=== PATIENT | male | born 1955 | race Caucasian/White ===

== ENCOUNTER 2017-03-06 21:28 | Inpatient (IN) | payer OTHER ==
[~2017-03-06] VITALS: Ht 182.9 cm; Wt 104.1 kg
--- NOTE | ~2017-03-06 | ER ---
PATIENT'S NAME: ADILIA LYONS [facility] AGE: 61 Y [address] ROOM: [place] [id number] LOCATION: [facility] ADMIT DATE: 03/06/2017 ER/Outpatient Report DISCHARGE DATE: FAMILY PHYSICIAN: PHYSICIAN, UNKNOWN ATTENDING PHYSICIAN: MARLENA WILLARD Time of Arrival: 2130 hours. Time of Evaluation: 2130 hours. CHIEF COMPLAINT: Chest pain. HISTORY OF PRESENT ILLNESS: The patient is a 61-year-old male, who presents to the emergency department today with a chief complaint of chest pain, who reports this started 1 hour prior to arrival. He denies any ripping or tearing sensation. Does have some nausea as well as some vomiting. He did have pain up into his jaw. He was diaphoretic. There is a pressure in the center of his chest. The patient does report pain that started prior to arrival. He has not had history of similar episodes in the past. Denies any radiation to the back. No ripping or tearing. No history of PE or DVT. PAST MEDICAL HISTORY: Hyperthyroid. PAST SURGICAL HISTORY: Tonsillectomy and TURP. SOCIAL HISTORY: The patient denies any tobacco, alcohol, or illicit drug use. ALLERGIES: NO KNOWN DRUG ALLERGIES. MEDICATIONS: Levothyroxine. PRIMARY CARE DOCTOR: Dr. Brannon. REVIEW OF SYSTEMS: All systems are reviewed by myself and are negative with the exception of those discussed in the HPI and past medical history. PHYSICAL EXAMINATION: PATIENT'S NAME: ADILIA LYONS [facility] AGE: 61 Y [address] ROOM: [address] [address] LOCATION: [facility] ADMIT DATE: 03/06/2017 ER/Outpatient Report DISCHARGE DATE: FAMILY PHYSICIAN: PHYSICIAN, UNKNOWN ATTENDING PHYSICIAN: MARLENA WILLARD VITAL SIGNS: Pulse 88, respiratory rate 18, temperature 97.9, oxygen saturation 96% on 2 L nasal cannula, and blood pressure 207/110. GENERAL: The patient is a 61-year-old male, appears as stated age, in moderate acute distress. HEENT: Normocephalic and atraumatic. Pupils are equal, round, and reactive to light. NECK: Supple. There is no nuchal rigidity. CARDIOVASCULAR: Regular rate and rhythm. No murmurs, rubs, or gallops. LUNGS: Clear to auscultation bilaterally. No wheezes, rales, or rhonchi. ABDOMEN: Soft, nontender, and nondistended. No rebound, rigidity, or guarding. MUSCULOSKELETAL: The patient moves all 4 extremities. SKIN: Warm and dry. LABORATORY DATA AND X-RAYS: A field EKG was obtained at 2116 hours and interpreted by myself. It does show ST elevation in III and aVF. There is ST depression noted in 1 and aVL. This does meet STEMI criteria. Repeat EKG upon arrival here to the emergency department does show ST elevation of 2 mm in III and AVF as well as ST depression in 1 and aVL. CBC is unremarkable except for hemoglobin of 18.4 and hematocrit of 53.7. Coags are normal. CMP unremarkable except for potassium of 3.6 and glucose of 186. LFTs are normal. Magnesium is normal. Troponin is elevated at 0.328. One view chest x-ray is obtained, shows no acute process. IMPRESSION: 1. ST segment elevation myocardial infarction. 2. Critical care time 30 minutes. 3. Initial visit. EMERGENCY DEPARTMENT COURSE: The patient's EKG from the field was sent at 2116 hours, this was interpreted by myself, does show STEMI with ST elevation of 3 mm in lead III and 2 mm in aVF. A code STEMI was initiated. Dr. Cochran, the energy risk management analyst on-call, was contacted at 2120 hours by myself. I have discussed that there is a STEMI en route for a 61-year-old male, who had nausea, vomiting, and chest pain. The patient does arrive here in the emergency department. He was immediately seen upon arrival by myself. The patient had been given aspirin and nitroglycerin prior to arrival. No more nitroglycerin was given. History and physical performed. Repeat EKG was obtained as described above. I have discussed the case with Dr. Cochran. She has seen and evaluated the patient down here in the emergency department. The patient was prepped for the heart catheterization lab. Heparin bolus was initiated. I have discussed the heart catheterization with the patient. His questions were answered, he is without questions, he does wish to proceed. The patient did require critical care time, this did include time spent, PATIENT'S NAME: ADILIA LYONS [facility] AGE: 61 Y [address] ROOM: [place] [address] LOCATION: [facility] ADMIT DATE: 03/06/2017 ER/Outpatient Report DISCHARGE DATE: FAMILY PHYSICIAN: PHYSICIAN, UNKNOWN ATTENDING PHYSICIAN: MARLENA WILLARD interpreting EKG including the field EKG, talking with family, talking with consultants, ordering tests, reviewing tests, as well as close monitoring in a patient with a STEMI. DISPOSITION: The patient is transferred to the heart catheterization lab in critical condition. DO HERBER MEDEIROS/jeimy /[id number] d: 03/07/17 0325 t: 03/10/17 1902, OUTPATIENT REPORT
--- NOTE | ~2017-03-06 | CATH ---
Cardiac Diagnostic Report Demographics Patient Name SERENA Henderson Gender Male Date of 1955 Age 61 year(s) Patient Number [id number] Date of Study 03/06/2017 Visit Number [id number] Room Number G6[address] [place] [id number] Ht 183 cm Wt 106.6 kg Referring Salud Lemons Primary Physician Physician Performing [place] Secondary Physician Physician Keke CHINO [facility] Ass[facility] Phys[facility] Physician Keke CHINO Interventional Physician Rear Admiral Physician Findings and Conclusions Diagnostic Findings and Conclusion Severe multi-vessel disease. Critical lesions in mid RCA, subtotalled with significant thrombus burden, Cx/OM is subtotalled as well, LAD/diag branches with 90% stenosis. Collaterals from left system fill distal RCA. LV gram reveals normal LV systolic function. No significant MR. No . LVEDP is \E\R\E\ 16 mmHg. Diagnostic Recommendations There is no indication for attempted PCI of RCA, which is the culprit lesion for inferior STEMI, as patient has collaterals from the left system and distal vessel fills antegrade flow as well. At this time patient will benefit from urgent CABG given he continues to have mild chest discomfort and ongoing evidence of ischemia on ECG. Discussed and reviewed angiograms with Dr. Palm. Appreciate his help. Patient is hemodynamically stable. Procedure Description The patient was brought to the diagnostic cardiac catheterization-EP laboratory by emergency personal. Physician deemed procedure as EMERGENT. The planned puncture-incision site(s) were shaved and prepped with ChloraPrep and draped in the usual sterile manner. Conscious sedation, supplemental oxygen, and pain control medications were delivered by a registered nurse under physician guidance. Surface ECG rhythm, blood pressure measurement, and pulse oximetry were monitored throughout the procedure. Arterial access. The access site was infiltrated with lidocaine. The vessel was entered with the Seldinger technique. A sheath was advanced into the vessel and used for catheter placement. Selective left coronary angiography. A catheter was advanced into the left coronary vessel ostium under Fluoroscopic guidance. Contrast was injected by hand. Images were obtained in multiple projections. Selective right coronary angiography. A catheter was advanced into the right coronary vessel ostium under fluoroscopic guidance. Contrast was injected by hand. Images were obtained in multiple projections. Left heart catheterization with ventriculography. A catheter was advanced across the aortic valve to the left ventricle under fluoroscopic guidance. Resting hemodynamics were obtained. With the catheter at the left ventricular apex, contrast was injected. Images were obtained in CARPIO projection. Post-ventriculography LV pressure was obtained. The catheter was gradually withdrawn into the aorta with continuous pressure recording. Arterial artery hemostasis was achieved. The patient was transferred to emergent CABG by OR staff. The patient left the laboratory in stable condition. Diagnostic Cath Status: Emergency Procedure Procedure Type Diagnostic procedure:Ventriculogram:, Left, Angiography:, Coronary Angios w/[facility] Indications: Acute TX and ST wave changes. Angiographic Findings Dominance: Right Cardiac Arteries and Lesion Findings LMCA: Normal (0% Stenosis). LAD: Aneurysmal and Multiple stenosis.Aneurysmal proximal. Mid LAD 90% stenosis. Diag 1 70% stenosis. Diag 2 90% stenosis. Lesion on Mid LAD: Mid subsection.90% stenosis . Lesion on 1st Diag: Mid subsection.70% stenosis . Lesion on 2nd Diag: Mid subsection.90% stenosis . LCx: Multiple stenosis. Lesion on Prox CX: Proximal subsection.95% stenosis . Lesion on Mid CX: Mid subsection.90% stenosis . Lesion on 3rd Ob Ines: Mid subsection.95% stenosis . RCA: Multiple stenosis. Lesion on Prox RCA: Proximal subsection.80% stenosis . Lesion on Mid RCA: Mid subsection.99% stenosis . Lesion on 1st RPL: Proximal subsection.30% stenosis . Lesion on R PDA: Mid subsection.50% stenosis . Coronary Tree Procedure Data Procedure Date Date: 03/06/2017Start: 09:59 PMEnd: 10:45 PM Entry Locations - Retrograde Percutaneous access was performed through the Right Radial artery (Primary location). A 6 Fr sheath was inserted. Hemostasis was successfully obtained using Mechanical Compression. Closure Comments: 13 ml in R. Band by Barber Fierro. Procedure Medications Order and Administration + + + + + !Time !Medication !Dosage !Route ! + + + + + !03/06/2017 09:59 PM!Versed !1 mg !I.V. ! + + + + + !03/06/2017 09:59 PM!Zofran !4 mg !I.V. ! + + + + + !03/06/2017 09:59 PM!Fentanyl !50 mcg ! ! + + + + + !03/06/2017 10:07 PM!Heparin Drip ( 2500u/250ml)!1000 units/hr!I.V. drip ! + + + + + Devices Used - A5 Fr. BS JL 3.5 Diag. Catheterwas used for:Left coronary angiography. - A5 Fr. BS JR 4 Diag. Catheterwas used for:Right coronary angiography. - A5 Fr. BS Angled Pigtail Diag. Catheterwas used for:Left ventriculography. Contrast Material - Isovue 28566 ml Fluoroscopy Time: Diagnostic: 3:03 minutes. Total: 3:03 minutes. Fluoroscopy Dose: Diagnostic: 942 mGy. Total: 942 mGy. Estimated Blood Loss: 10 ml. Medical History Allergies - No known allergies. Admission Data Admission Date: 03/06/2017 Admission Time: 09:59 PM Admit Source: Emergency department Insurance Payors: Private health insurance. Clinical Evaluation Leading to Procedure - The patient's CAD presentation was assessed as: STEMI.The symptom onset was first noted on 03/06/2017 08:00 PM(time was estimated). - The patient's anginal syndrome during the past two weeks was assessed as: Class IV according to the [place] Cardiovascular Society Classification System (CCS). - The patient has been in a state of heart failure within the past two weeks. - The patient's heart failure status was assessed as NYHA Class II, with CHF symptoms of ASHLEY. VA LV function assessed . Hemodynamics Condition: Rest O2 Consumption: Estimated: 276.40Heart Rate: 80 bpm Pressures (mmHg) +-----+ + !Site !Pressure ! +-----+ + !LV !150/13 ,20 ! +-----+ + !LV !150/13 ,18 ! +-----+ + !LV !150/7 ,20 ! +-----+ + !LV !149/6 ,19 ! +-----+ + !AO !157/90 (120) ! +-----+ + !LV !152/5 ,20 ! +-----+ + Valve Gradients and Areas + +---------+---------+---------+ +---------+ + !Valve !Peak !Mean !Area !Index !Flow !Source ! + +---------+---------+---------+ +---------+ + !Aortic !0 !0 ! ! ! ! ! + +---------+---------+---------+ +---------+ + !Aortic !0 !0 ! ! ! ! ! + +---------+---------+---------+ +---------+ + Shunts Oxygen Values O2 Consumption 276.4 Signatures dtt: KEKE WILLARD dtd: 03/06/17 2159 Physician Self Edit
--- NOTE | ~2017-03-06 | OR ---
PATIENT'S NAME: ADILIA LYONS [facility] AGE: 61 Y [address] ROOM: [address] [address] LOCATION: [facility]U ADMIT DATE: 03/06/2017 OR/Procedure Report DISCHARGE DATE: 03/12/2017 FAMILY PHYSICIAN: Galen Brannon MD ATTENDING PHYSICIAN: Keke Reyes SURGEON: Ryan Palm DO BOTTLE CASER: DATE OF PROCEDURE: 03/06/2017 PREOPERATIVE DIAGNOSIS: Code ST elevation myocardial infarction. POSTOPERATIVE DIAGNOSIS: Code ST elevation myocardial infarction. PROCEDURE PERFORMED: Emergent coronary artery bypass grafting x6 with left internal mammary artery to the left anterior descending, reverse saphenous vein graft to the diagonal, reverse saphenous vein graft to obtuse marginal #2 that was sequenced to the obtuse marginal #1, reverse saphenous vein graft to posterolateral septal branch sequenced to the posterior descending artery. REFERRING PHYSICIAN: Keke Reyes MD. BRIEF HISTORY: Mr. Lyons is a 61-year-old white male who presented to the ER with chest pain. He was ruled in as a code STEMI and taken emergently to the Coronary Employee Benefits Manager where he was found to have severe multivessel disease and continued to have ongoing chest pain with marked hypertension. We were called to the Employee Benefits Manager and elected to bring him to the operative suite in an emergent fashion to control his chest pain. He is sterilely prepped and draped in the usual fashion for sternotomy with lower extremity vein harvest. A sternal incision was made and concurrently to this, saphenous vein was being harvested endoscopically from the lower extremity. The sternum was divided in the midline. Electrocautery was used for hemostasis along with [place] for marrow hemostasis and a mammary retractor was placed. The left internal mammary was identified and harvested in a standard fashion. Prior to its division, the patient was fully heparinized. The mammary was then divided and prepared for bypass. The mammary retractor was removed and a sternal retractor was placed. Pericardium was opened. Pericardial wall was created. Cannulation sutures were placed in the ascending aorta and right atrium for bypass and cardioplegia cannulas, and the patient was connected to bypass pump without difficulty. The vein was then prepared for bypass. An adequate ACT was achieved, and cardiopulmonary bypass was initiated. A cross-clamp was applied. Antegrade and retrograde cardioplegia was given along with topical cold saline and the heart arrested without difficulty. The posterolateral septal branch was identified and opened, end-to-side vein graft anastomosed to this, and then a 500 mL of retrograde vein graft cardioplegia was given. This was done after each venous distal anastomosis. The graft was then sized PATIENT'S NAME: ADILIA LYONS [facility] AGE: 61 Y [address] ROOM: [place] [address] LOCATION: [facility]U ADMIT DATE: 03/06/2017 OR/Procedure Report DISCHARGE DATE: 03/12/2017 FAMILY PHYSICIAN: Galen Brannon MD ATTENDING PHYSICIAN: Keke Reyes appropriately, and then a qprr-gc-cfau bypass was created with the same graft to the posterior descending artery. Another 500 mL of vein graft was given and we proceeded to the obtuse marginal #1. This was identified and opened, end-to-side vein graft anastomosed to it, and then after plegia was given, a jjir-nn-agui anastomosis was created with the vein graft to the obtuse marginal #2, we then performed vein graft anastomosis to the diagonal in an end-to-side fashion, and then lastly we performed our COBB to LAD bypass again in an end-to-side fashion with 7-0 Prolene. Once this was completed, the crossclamp was removed, a partial occlusion clamp was applied. Warm blood was now initiated via the vein grafts and the retrograde cannula, and we began to perform our proximal anastomosis. We did 2 proximal anastomoses under partial occlusion clamping with a 4-0 punch and 6-0 Prolene and then anastomosed our last vein graft to the ascending aorta with a 4.3 heartstring to the ascending aorta and 6-0 Prolene. Once this was completed, all vein grafts de-aired, bulldog was removed, and distal flow was given. Distal sites were hemostatic. Proximal sites were hemostatic. Two atrial and 1 ventricular temporary pacemaking wires were placed. Warm blood was discontinued, retrograde cannula was removed, ventilations were initiated, and we weaned from cardiopulmonary bypass. We weaned from bypass without difficulty, requiring only 0.5 mcg/kilo of Eris-Synephrine. Venous cannula was removed. Appropriate volume returned from the pump to the patient. The ascending aortic cannula was removed, and protamine was given. Copious amounts of antibiotic-infused saline was used to irrigate the sternum and mediastinum. Three chest tubes were placed, 1 left pleural, 1 posterior pericardial, 1 anterior mediastinal. Five ZipFix cables were used to approximate the sternum and soft tissues were closed in a layered fashion. All sponge, instrument, and needle counts were correct. The patient was transferred to the Intensive Care Unit in stable condition. DO MAO CASTILLO/modl /[id number] d: 03/14/172024 t: 03/15/17 0841, OPERATIVE SUMMARY
--- NOTE | ~2017-03-06 | CON ---
PATIENT'S NAME: ADILIA LYONS [facility] AGE: 61 Y [address] ROOM: [address] [address] LOCATION: GICU ADMIT DATE: 03/06/2017 Consultation DISCHARGE DATE: FAMILY PHYSICIAN: PHYSICIAN, UNKNOWN ATTENDING PHYSICIAN: MARLENA WILLARD DATE OF CONSULTATION: 03/06/2017 REFERRING PHYSICIAN: Holland Guadalupe DO REASON FOR CONSULTATION: STEMI. HISTORY OF PRESENTING ILLNESS: The patient is a very pleasant 61-year-old male, who really does not have any significant past medical history except for hypothyroidism. His primary care physician is Dr. Bueno. The patient reports that he takes Synthroid and no other medications at home. The patient has been in his usual state of health up until recently on Saturday, that is about 5 days ago, he really was not feeling normal, he was feeling sick to his stomach and started having some chest pain. He reports this was coming off and on for the past few days. However, today, he reports he was feeling very sick, he vomited, he was nauseous. He also had some chest tightness, radiating to the jaw. He had it off and on today, this morning; however, at around 8 o'clock in the evening, an hour and a half before he came into the emergency room, he reported that the nausea and vomiting was getting worse along with the chest tightness and he rated it at 5 and that was radiating to his jaw. He finally called 911 and came to the emergency room. EMS did the EKG where they noted ST elevation and the STEMI code was activated, and I was called. The patient was about 5 minutes away. He did receive aspirin in the ambulance. Upon arrival, I asked the ER physician to give 4000 units of IV heparin, and the patient was then taken emergently to the cardiac microbiology lab technician. Risks and benefits were discussed with the patient, and he was agreeable to proceed with catheterization. He did not have any fever; chills; stroke-like symptoms; changes in his speech, swallowing sensation, or strength. He also did not have any diarrhea or blood in his stools. No history of stroke in the past. No changes in his gait. No cough or sputum production. No palpitations or dizziness. REVIEW OF SYSTEMS: Discussed with the patient. Pertinent positives and negatives as mentioned in the history of presenting illness. PAST MEDICAL HISTORY: PATIENT'S NAME: ADILIA LYONS [facility] AGE: 61 Y [address] ROOM: [place] [address] LOCATION: [facility] ADMIT DATE: 03/06/2017 Consultation DISCHARGE DATE: FAMILY PHYSICIAN: PHYSICIAN, UNKNOWN ATTENDING PHYSICIAN: MARLENA WILLARD Hypothyroidism. PAST SURGICAL HISTORY: TURP, appendectomy, and tonsillectomy. ALLERGIES: NO KNOWN DRUG ALLERGIES. MEDICATIONS: Synthroid, will reconcile meds and get dose. FAMILY HISTORY: The patient was adopted, so family history is unknown. SOCIAL HISTORY: The patient does not smoke. No alcohol or illicit drug abuse. He is and has 4 children. PHYSICAL EXAMINATION: VITAL SIGNS: Blood pressure 200/110, heart rate 80s, respirations 14, afebrile. GENERAL: The patient is not in any apparent distress. He reports 3/10 chest tightness. HEENT: Head: Atraumatic and normocephalic. Mucous membranes are moist. HEART: S1 and S2. Regular rate and rhythm. No murmurs, gallops, or rubs. LUNGS: Clear to auscultation bilaterally. MUSCULOSKELETAL: Able to move all extremities. Good range of motion. NEUROLOGIC: Extraocular movements are intact. He is able to move all extremities against gravity. Sensation is normal. No significant lower extremity edema. Radial 2+ artery. SKIN: Warm and dry. ABDOMEN: Soft bowel sounds positive. LABORATORY DATA: Labs are pending. EKG, ST elevation in the inferior leads with ST depressions in leads I and aVL. IMPRESSION AND PLAN: 1. Inferior ST elevation myocardial infarction with ST depressions in I and aVL. I suspect an occlusion of the right coronary artery. Risks and benefits discussed with the patient. I told him that the benefits of catheterization outweigh the risks. He is agreeable to proceed with plan. Aspirin and heparin given, and the patient was taken emergently to the cardiac microbiology lab technician. 2. Hypothyroidism. We will get the dosage of his Synthroid and resume that. PATIENT'S NAME: ADILIA LYONS [facility] AGE: 61 Y [address] ROOM: [place] [address] LOCATION: [facility] ADMIT DATE: 03/06/2017 Consultation DISCHARGE DATE: FAMILY PHYSICIAN: PHYSICIAN, UNKNOWN ATTENDING PHYSICIAN: MARLENA WILLARD Further plan after the cardiac cath is performed. Thank you very much for allowing us to participate in the care of Mr. Lyons. MARLENA WILLARD MD AT/modl /[id number] CC: Galen Brannon MD d: 03/07/17 0327 t: 03/08/17 0942, CONSULTATION REPORT
[2017-03-06 21:45] LABS: BASOPHIL # 0.1 K/uL (0.0-0.2); BASOPHIL % 0.8 %; EOSINOPHIL # 0.1 K/uL (0.0-0.5); EOSINOPHIL % 0.8 %; HEMATOCRIT 53.7 % (37.0-53.0); HEMOGLOBIN 18.4 g/dL (11.0-16.0); IMMATURE GRANULOCYTE % 0.7 %; LYMPHOCYTE # 1.5 K/uL (0.8-4.0); LYMPHOCYTE % 24.1 %; MCH 30.8 pg (27.0-34.0); MCHC 34.3 gm/dL (32.0-36.5); MCV 89.8 fl (83.0-98.0); MONOCYTE # 0.7 K/uL (0.0-1.0); MONOCYTE % 10.8 %; MPV 9.4 fl (9.4-12.4); NEUTROPHIL # (ANC) 3.8 K/uL (1.4-9.0); NEUTROPHIL % 62.8 %; NRBC % 0 /100WBC (0-0.00); PLATELET COUNT 199 K/uL (150-450); RDW-CV 12.9 % (11.9-14.6)
[2017-03-06 21:48] LABS: RBC 5.98 M/uL (3.50-5.50)
[2017-03-06 21:54] LABS: INR - (THERAPEUTIC) 1.03 (0.92-1.07); PROTIME 10.8 SECONDS (9.8-11.4); PTT 30 SECONDS (25-32)
[2017-03-06 22:03] LABS: ALBUMIN 3.6 gm/dL (3.5-5.0); ANION GAP 13.6 (10.0-19.0); CALCIUM 8.6 mg/dL (8.5-10.5); CREATININE 1.3 mg/dL (0.6-1.3); MAGNESIUM 2.3 mg/dL (1.8-2.6); POTASSIUM 3.6 mMol/L (3.7-5.1); TOTAL BILIRUBIN 0.7 mg/dL (0.0-1.5); TOTAL PROTEIN 7.6 g/dL (6.0-8.4)
[2017-03-07 05:01] LABS: HEMOGLOBIN 13.1 g/dL (11.0-16.0); MCHC 33.8 gm/dL (32.0-36.5); MCV 91.3 fl (83.0-98.0); MPV 9.6 fl (9.4-12.4); RDW-CV 13.1 % (11.9-14.6); WBC 15.8 K/uL (4.0-11.0)
[2017-03-07 05:05] LABS: MCH 30.8 pg (27.0-34.0); RBC 4.25 M/uL (3.50-5.50)
[2017-03-07 05:06] LABS: HEMATOCRIT 38.8 % (37.0-53.0)
[2017-03-07 05:09] LABS: INR - (THERAPEUTIC) 1.13 (0.92-1.07); PROTIME 11.9 SECONDS (9.8-11.4)
[2017-03-07 05:40] LABS: BICARBONATE 29.6 mmol/L (18.0-23.0); PCO2 56 mmHg (35-45); PO2 484 mmHg (80-90)
[2017-03-07 05:41] LABS: POTASSIUM 4.4 mEq/L (3.7-5.1); SODIUM 136 mEq/L (135-145)
[2017-03-07 05:42] LABS: BICARBONATE 24.4 mmol/L (18.0-23.0); PCO2 50 mmHg (35-45); PO2 131 mmHg (80-90)
[2017-03-07 05:43] LABS: POTASSIUM 4.2 mEq/L (3.7-5.1); SODIUM 137 mEq/L (135-145)
[2017-03-07 05:44] LABS: BICARBONATE 24.6 mmol/L (18.0-23.0); PCO2 44 mmHg (35-45); PO2 176 mmHg (80-90)
[2017-03-07 05:45] LABS: POTASSIUM 5.9 mEq/L (3.7-5.1); SODIUM 136 mEq/L (135-145)
[2017-03-07 05:47] LABS: BICARBONATE 23.1 mmol/L (18.0-23.0); PCO2 42 mmHg (35-45); PO2 184 mmHg (80-90)
[2017-03-07 05:48] LABS: POTASSIUM 4.3 mEq/L (3.7-5.1); SODIUM 137 mEq/L (135-145)
[2017-03-07 05:55] LABS: ALPHA ANGLE 72 degrees; ALPHA ANGLE 75 degrees (70-81); CLOT FORMATION TIME 90 seconds; MAXIMUM CLOT FIRMNESS 61 mm; MAXIMUM CLOT FIRMNESS 63 mm (51-72); MAXIMUM LYSIS 0 %
[2017-03-07 05:56] LABS: CLOTTING TIME 78 seconds (43-82)
[2017-03-07 05:58] LABS: CLOTTING TIME 312 seconds
[2017-03-07 05:59] LABS: PCO2 45 mmHg (35-45); PO2 173 mmHg (80-90)
[2017-03-07 06:20] LABS: ANION GAP 12.3 (10.0-19.0); CALCIUM 8.5 mg/dL (8.5-10.5); CREATININE 1.3 mg/dL (0.6-1.3)
[2017-03-07 06:21] LABS: POTASSIUM 4.3 mMol/L (3.7-5.1)
--- NOTE | 2017-03-07 07:15 | NUR ---
Significant Event: PT WITH NAUSEA/CP WHILE AT WORK. PRESENTED TO ER CODESTEMI. TAKEN TO CATHLAB. DR WEST CONSULTED FOR EMERGENT CABG. CABG X6 VESSEL. COBB AND LEFT SAPH HARVEST SITES. PIV X2. RIGHT IJ, INTRODUCER. LEFT RADIAL ARTLINE. TR BAND TO RIGHT RADIAL CATH SITE REMOVED BY DR WEST AT BEDSIDE. INTUBATED ON SIMV 16/650/5/10/50%. A PACED. CT X4. AMIO PER PROTOCOL. BICARB AT 50ML/HR. INUSLIN GTT RESTARTED TITRATED TO 5 UNITS/HR. [address] K[address]WANDA COUDE CARSON PLACED BY DR WEST. Follow up:
[2017-03-07 07:40] LABS: ANION GAP 13.2 (10.0-19.0); BLOOD UREA NITROGEN 17 mg/dL (6-24); CALCIUM 8.1 mg/dL (8.5-10.5); CHLORIDE 112 mMol/L (96-110); CO2 22 mMol/L (22-32); CREATININE 1.2 mg/dL (0.6-1.3); ESTIMATED GFR (MDRD EQUATION) > 60; POTASSIUM 4.2 mMol/L (3.7-5.1); SODIUM 143 mMol/L (135-145)
[2017-03-07 07:45] LABS: MAGNESIUM 3.2 mg/dL (1.8-2.6)
[2017-03-07] MEDS ORDERED: ASPIRIN LO-DOSE81 MG PO (07:47)
[2017-03-07] MEDS ORDERED: EXCEDRIN EXTRA1 TAB PO (07:47)
[2017-03-07] MEDS ORDERED: LEVOTHROID (S150 MCG PO (07:47)
--- NOTE | 2017-03-07 12:06 | NUR ---
Introduced self and role of care management to patients Rosey as patient is sleeping. They live in [place]. She states that patient is normally independent with all his own ADL's. He currently works at [employer]. She states that she will be available to assist as needed on discharge. It is too soon to know discharge needs at this time. Rosey denies needs at this time. Will continue to follow.
[2017-03-07 15:16] LABS: POTASSIUM 4.6 mMol/L (3.7-5.1)
[2017-03-07 15:23] LABS: MAGNESIUM 2.7 mg/dL (1.8-2.6)
--- NOTE | 2017-03-07 16:30 | NUR ---
Significant Event: Patient is alert/oriented x3. Confused on time at times. Patient up in chair most of the day. Stood every 2 hours, and at [address] hallway with 2 assist. [place] given x2 this shift. Afebrile. Did have a lot of ectopy this afternoon. aware and did give extra amiodarone as electrolytes were normal. Pacemaker shut off at 1545. Chest tubes x4. Not much draining from them this shift. Nieves draining adrien urine with brown sediment. L) leg harvest sites wrapped in DAXA wrap. Follow up:
[2017-03-08 04:35] LABS: BICARBONATE 29.2 mmol/L (18.0-23.0); PCO2 46 mmHg (35-45)
[2017-03-08 04:38] LABS: PO2 68 mmHg (80-90)
[2017-03-08 04:40] LABS: HEMATOCRIT 42.4 % (37.0-53.0); HEMOGLOBIN 14.4 g/dL (11.0-16.0); MCH 31.2 pg (27.0-34.0); MCV 91.8 fl (83.0-98.0); MPV 10.1 fl (9.4-12.4); RBC 4.62 M/uL (3.50-5.50); RDW-CV 13.4 % (11.9-14.6); WBC 9.5 K/uL (4.0-11.0)
[2017-03-08 04:51] LABS: ANION GAP 10.8 (10.0-19.0); CALCIUM 8.2 mg/dL (8.5-10.5); CREATININE 1.3 mg/dL (0.6-1.3); POTASSIUM 3.8 mMol/L (3.7-5.1)
--- NOTE | 2017-03-08 05:52 | NUR ---
Significant Event: PATIENT ALERT AND ORIENTED. AFEBRILE THROUGHOUT SHIFT. PATEL GTT TITRATED OFF AT 2205. HR 70-80'S, OCCASSIONAL PVC NOTED. CVP 4-10. CT X4 WITH SEROSANG OUTPUT. 230 OUT PLEURAL, 140 OUT MEDIASTINAL. CONTINUES ON 2L PER NASAL CANNULA. WEAK COUGH. CARSON WITH GOOD UOP FOLLOWING BUMEX. NO BM, DENIES FLATUS. RIGHT IJ MAC. PIV X2. AMIO GTT OFF THIS MORNING, STARTED ON PO DOSE. CONTINUES ON INSULIN GTT, CURRENTLY AT 7 UNITS/HR. LEFT RADIAL ART LINE. PRN NORCO GIVEN Q4 HR. Follow up: TRANSFER PCU?
--- NOTE | 2017-03-08 10:02 | NUR ---
Significant Event: Patient is alert/oriented x3. Patient is receiving Seymour's every 4 hours for pain. Up ambulating with 1 assist. ART line, central line and 2 medial stinal chest tubes discontinued. AV wires also discontinued. Pleural chest tubes changed to kitty drains. NSR with some PVCs observed. VSS. Afebrile. Patient continues to have anguiano catheter. Follow up:
--- NOTE | 2017-03-08 18:37 | NUR ---
Significant Event:VSS AFEBRILE. HR'S 80'S TO 90'S. BP'S 110'S. ON 2L PER NC IN THE 90'S. DID HAVE STERNAL PAIN GAVE 2 NORCO LAST AT 1750. LFT LEG HARVEST SITES GOOD. STERNAL INCISION COVERED BY MEPILEX. ALLI PRESENT 550ML UOP. Follow up:
--- NOTE | 2017-03-09 04:08 | NUR ---
Significant Event: Pt A&Ox3. VS stable, remains on 2L. Pt has had a weak cough, LS clear/dim. HR NS, has been running in 90's-low 100's. BP's have been stable. Nieves patent with 390ml out, still remains adrien in color. +flatus, still BS hypoactive. Did c/o nausea this AM, gave 1 dose zofran. JYOTSNA drain on Lt side had 120ml out, Rt side 20ml. Gave 2 Reading around 0400 for pain. PIV RAC and LFA, SL. Remains up in chair. Have not gotten up. Pt remained drowsy/sleepy all throughout shift. Follow up: Continue plan of care. Treat for pain. Increase activity
[2017-03-09 04:28] LABS: HEMOGLOBIN 14.5 g/dL (11.0-16.0); MCH 30.7 pg (27.0-34.0); MCV 93.2 fl (83.0-98.0); MPV 10.2 fl (9.4-12.4); RBC 4.72 M/uL (3.50-5.50); RDW-CV 13.5 % (11.9-14.6); WBC 10.6 K/uL (4.0-11.0)
[2017-03-09 04:39] LABS: ANION GAP 12.6 (10.0-19.0); CALCIUM 8.3 mg/dL (8.5-10.5); CREATININE 1.3 mg/dL (0.6-1.3); POTASSIUM 4.6 mMol/L (3.7-5.1)
--- NOTE | 2017-03-09 15:53 | NUR ---
Significant Event: Patient A/O x 3. Up with 1A. VSS on 1L throughout the day. Attempted to wean to RA this shift. R)chest tube drain with 70 ml out and L)chest tube drain with 110 ml out. Nieves pulled out at 1535 and has voided since. Nauseated this afternoon so gave Zofran about 1330. Poor appetite and has only ate bites of pudding and jello today. RAC PIV SL. LFA PIV with 500 ml of albumin infusing and then SL. Continues ACHS accu checks. Pain controlled with [place]. Follow up: Continue as per plan of care. Control pain. Monitor nausea.
--- NOTE | 2017-03-10 04:53 | NUR ---
Significant Event: Pt A&Ox3. VS stable; have been able to wean pt off O2 while awake; however, 0.5L while sleeping. Has continued to have diarrhea. Has voided since anguiano removal yesterday. Did c/o nausea last night, zofran given with relief. Ambulates x1 assist to bathroom. [place] 2 tabs, last given around 0330. Dressing remains C/D/I. Accuchecks ACHS, moderate scale. JYOTSNA #1 90, JYOTSNA #2 60 output. PIV RAC, SL; Lt wrist, SL. Follow up: Ambulate TID. Up to chair TID. Continue plan of care.
--- NOTE | 2017-03-10 15:54 | NUR ---
Significant Event: Patient A/O x 3. Up with 1A. Sternal precautions. VSS on 0.5L. Have attempted to wean to RA multiple times throughout the day without success. Dressing to chest and chest tube sites intact with no new drainage. R)bulb drain with 70 ml out and L)drain with 60 out. No crepitus noted. Patient continues to have diarrhea-like stools today, but has not had any nausea. Tolerated more food intake today than previous days. Last pain medication given at 1230. Plan to give [place] prior to shift ending. [id number] pain control, and patient reports pain is tolerable. Ambulated [address] [facility] accu checks. Has not required coverage for the last 2 days. Follow up: Continue as per plan of care. Continue increasing activity level.
--- NOTE | 2017-03-11 04:37 | NUR ---
Significant Event: Pt A&Ox3. VS stable, remains on 0.5L. Continued to have diarrhea overnight, held colace again. Rt JYOTSNA had 20ml out and Lt JYOTSNA had 20ml out. Gave [place] 2 tabs last @ 0326. Accuchecks ACHS, last night was 101. No c/o nausea overnight. Follow up: Encourage food intake. Increase activity. Continue plan of care.
[2017-03-11 04:40] LABS: BASOPHIL % 0.5 %; EOSINOPHIL # 0.1 K/uL (0.0-0.5); EOSINOPHIL % 0.8 %; HEMATOCRIT 43.1 % (37.0-53.0); HEMOGLOBIN 14.1 g/dL (11.0-16.0); IMMATURE GRANULOCYTE # 0.1 K/uL (0.0-0.3); IMMATURE GRANULOCYTE % 0.7 %; LYMPHOCYTE # 1.1 K/uL (0.8-4.0); LYMPHOCYTE % 14.5 %; MCH 30.9 pg (27.0-34.0); MCHC 32.7 gm/dL (32.0-36.5); MCV 94.5 fl (83.0-98.0); MONOCYTE # 0.8 K/uL (0.0-1.0); MONOCYTE % 11.5 %; MPV 9.9 fl (9.4-12.4); NEUTROPHIL # (ANC) 5.3 K/uL (1.4-9.0); NRBC % 0 /100WBC (0-0.00); RBC 4.56 M/uL (3.50-5.50); RDW-CV 13.7 % (11.9-14.6); WBC 7.3 K/uL (4.0-11.0)
[2017-03-11 04:47] LABS: PLATELET COUNT 181 K/uL (150-450)
[2017-03-11 04:57] LABS: ALBUMIN 2.7 gm/dL (3.5-5.0); ALK PHOS 76 IU/L (33-138); ALT 25 IU/L (12-78); ANION GAP 13.3 (10.0-19.0); AST 46 IU/L (10-40); BLOOD UREA NITROGEN 35 mg/dL (6-24); CALCIUM 8.2 mg/dL (8.5-10.5); CHLORIDE 104 mMol/L (96-110); CO2 26 mMol/L (22-32); CREATININE 1.2 mg/dL (0.6-1.3); ESTIMATED GFR (MDRD EQUATION) > 60; POTASSIUM 4.3 mMol/L (3.7-5.1); SODIUM 139 mMol/L (135-145); TOTAL BILIRUBIN 0.7 mg/dL (0.0-1.5); TOTAL PROTEIN 6.2 g/dL (6.0-8.4)
--- NOTE | 2017-03-11 11:15 | NUR ---
A - PT SCREENED D/T LOS. S/P CABG X 6. GLU 94, BUN/CROSSBAR FRAME WIRER 35/1.2, ALB 2.7. DIET: DIABETIC, 2-3 GM NA+, 2000 ML FR. INTAKE REFUSED TO BITES. EST NEEDS: 3640-9930 KCALS, 97-120 KCALS. PT STATES APPETITE SLOWLY RETURNING. LIKES ENSURE. CABG DIET ED COMPLETED; HOWEVER, STRESSED THE IMPORTANCE OF GOOD INTAKE TO PROMOTED HEALING. D - AT RISK W/ INADEQUATE ORAL INTAKE R/T DECREASED APPETITE S/P CABG AEB INTAKE RECORD. I - GOAL: 50% INTAKE PRIOR TO DIMISSAL. M/E - WILL OFFER ENSURE BID AND F/U IN 2-4 DAYS.
--- NOTE | 2017-03-11 15:34 | NUR ---
Significant Event: Patient A/O X 3. Patient up with 1A. Sternal precautions. Weaned to RA. Vital signs stable. Chest tubes removed today. Dressings all intact with no drainage. Patient has not had a BM today and no complaints of nausea. Food intake was minimal with little appetite. Lower Left lung sound has crackles. (improving). PIV bilateral saline locked. [place] last given at given at 1240. Ambulated 3 laps [address] hallway. Chest X-ray done today. [facility] accu checks. Follow up: Continue as per plan of care. Continue increasing activity level and PO intake. Possible dismissal tomorrow.
--- NOTE | 2017-03-12 04:35 | NUR ---
Significant Event: Pt A&Ox3. VS stable, remains on RA. Did have 2 small diarrhea bowel movements overnight. Did hold the colace. Accuchecks ACHS, BS last night was 101. No real c/o pain. Still slight crackles in Lt base. Dressings remain C/D/I. UO is good. Still needs encouragement to cough stronger. Also needs more encouragement to do flutter valve and IS. Remains in SR. No c/o nausea. SBA to bathroom. Follow up: Continue plan of care. Possible d/c home today.
[2017-03-12] MEDS ORDERED: CORDARONE,PACE200 MG PO (10:48)
[2017-03-12] MEDS ORDERED: LIPITOR40 MG PO (10:49)
[2017-03-12] MEDS ORDERED: BUMEX1 MG PO (10:49)
[2017-03-12] MEDS ORDERED: COLACE100 MG PO (10:50)
[2017-03-12] MEDS ORDERED: ASPIRIN EC81 MG (10:50)
[2017-03-12] MEDS ORDERED: LOPRESSOR25 MG PO (10:53)
[2017-03-12] MEDS ORDERED: POTASSIUM CHLO20 ME1 PO (10:54)
[2017-03-12] MEDS ORDERED: NORCO 5-325 TA1 EACH PO (10:56)
[2017-03-12] MEDS ORDERED: ZESTRIL2.5 MG PO (10:58)
--- NOTE | 2017-03-12 12:51 | NUR ---
Discharge Summary: Patient A/O x 3 and vital signs stable: HR 94, RR 14, BP 122/72, O2 saturation 94% on room air, RR 14, and rates pain at a 2/10, which is tolerable for the patient. Incisions clean/dry/intact with edges approximated and no signs of infection. Discharge instructions included: new medications/medication changes, post-heart surgery cares/instructions, signs/symptoms to be alert for, cardiac rehab info, and follow-up appointments with Dr. Cochran and Dr. Palm on 03/[address] Brannon on 03/19. Patient and verbalize understanding of all teaching and deny any further questions at this time. Patient left PCU at 1350 per wheelchair to [facility] entrance and then home to self care with . Heart hugger in place. No other needs at time of discharge. Marysol ROTH 03/12/17
== END 2017-03-12 12:50 | disposition disaster alternative care site (69) | DRG 234 ==
LOC: GMED 21:28 → GPCU 21:59 → GICU 21:59 → GPCU 03-08 10:29
PROVIDERS: Emergency Medicine; Thoracic Surgery (Cardiothoracic Vascular Surgery); ADMIT Internal Medicine Interventional Cardiology
PROC: 06BQ4ZZ Excision of Left Saphenous Vein, Percutaneous Endoscopic Approach (ICD-10-PCS; principal; 2017-03-06)
PROC: B2151ZZ Fluoroscopy of Left Heart using Low Osmolar Contrast (ICD-10-PCS; principal; 2017-03-06)
PROC: 021309W Bypass Coronary Artery, Four or More Arteries from Aorta with Autologous Venous Tissue, Open Approach (ICD-10-PCS; principal; 2017-03-06)
PROC: 5A1221Z Performance of Cardiac Output, Continuous (ICD-10-PCS; principal; 2017-03-06)
PROC: 4A023N7 Measurement of Cardiac Sampling and Pressure, Left Heart, Percutaneous Approach (ICD-10-PCS; principal; 2017-03-06)
PROC: 02100A9 Bypass Coronary Artery, One Artery from Left Internal Mammary with Autologous Arterial Tissue, Open Approach (ICD-10-PCS; principal; 2017-03-06)
PROC: B2111ZZ Fluoroscopy of Multiple Coronary Arteries using Low Osmolar Contrast (ICD-10-PCS; principal; 2017-03-06)
DX: I21.19 ST elevation (STEMI) myocardial infarction involving other coronary artery of inferior wall (principal); I10 Essential (primary) hypertension; E03.9 Hypothyroidism, unspecified; I25.10 Atherosclerotic heart disease of native coronary artery without angina pectoris
CPT/HCPCS: C1769; C1887; J0282; J0583; J0690; J1644; J1650; J2150; J2250; J2370; J2405; J2440; J2720; J3010; J3475; J3480; J3490; J7040; J7050; J7060; J7121; P9045; P9047

== ENCOUNTER → 2017-03-06 | Outpatient (CLI) | payer OTHER ==
[~2017-03-06] MED LIST: ASPIRIN EC81 MG; ASPIRIN LO-DOSE81 MG PO; BUMEX1 MG PO; COLACE100 MG PO; CORDARONE,PACE200 MG PO; EXCEDRIN EXTRA1 TAB PO; LEVOTHROID (S150 MCG PO; LIPITOR40 MG PO; LOPRESSOR25 MG PO; NORCO 5-325 TA1 EACH PO; POTASSIUM CHLO20 ME1 PO; ZESTRIL2.5 MG PO
== END | disposition disaster alternative care site (69) ==
LOC: GAMB 21:09
DX: I21.19 ST elevation (STEMI) myocardial infarction involving other coronary artery of inferior wall (principal); E03.9 Hypothyroidism, unspecified; I10 Essential (primary) hypertension; R07.89 Other chest pain; R11.2 Nausea with vomiting, unspecified; Z79.899 Other long term (current) drug therapy
CPT/HCPCS: A0422; A0425; A0427; J2405; J7030

== ENCOUNTER → 2017-03-26 | Outpatient (CLI) | payer OTHER ==
[2017-03-26 15:39] LABS: BASOPHIL # 0.1 K/uL (0.0-0.2); BASOPHIL % 1.2 %; EOSINOPHIL # 0.4 K/uL (0.0-0.5); EOSINOPHIL % 5.2 %; HEMATOCRIT 50.2 % (37.0-53.0); HEMOGLOBIN 16.7 g/dL (11.0-16.0); IMMATURE GRANULOCYTE % 0.5 %; LYMPHOCYTE # 1.7 K/uL (0.8-4.0); LYMPHOCYTE % 20.9 %; MCH 30.9 pg (27.0-34.0); MCHC 33.3 gm/dL (32.0-36.5); MCV 92.8 fl (83.0-98.0); MONOCYTE # 0.6 K/uL (0.0-1.0); MONOCYTE % 7.8 %; MPV 9.6 fl (9.4-12.4); NEUTROPHIL # (ANC) 5.2 K/uL (1.4-9.0); NEUTROPHIL % 64.4 %; NRBC % 0 /100WBC (0-0.00); RBC 5.41 M/uL (3.50-5.50); RDW-CV 13.2 % (11.9-14.6); WBC 8.1 K/uL (4.0-11.0)
[2017-03-26 15:40] LABS: PLATELET COUNT 424 K/uL (150-450)
[2017-03-26 15:56] LABS: ALBUMIN 3.4 gm/dL (3.5-5.0); ANION GAP 13.1 (10.0-19.0); CALCIUM 8.9 mg/dL (8.5-10.5); CREATININE 1.6 mg/dL (0.6-1.3); POTASSIUM 4.1 mMol/L (3.7-5.1); TOTAL PROTEIN 7.7 g/dL (6.0-8.4)
[2017-03-26 15:57] LABS: TOTAL BILIRUBIN 0.5 mg/dL (0.0-1.5)
== END | disposition disaster alternative care site (69) ==
LOC: LNHI 15:33
PROVIDERS: Nurse Practitioner Women's Health
DX: R53.83 Other fatigue (principal); I25.10 Atherosclerotic heart disease of native coronary artery without angina pectoris

== ENCOUNTER 2017-05-12 22:10 | Emergency (ER) | payer OTHER ==
--- NOTE | ~2017-05-12 | ER ---
PATIENT'S NAME: ADILIA LYONS [facility] AGE: 61 Y [address] ROOM: [place] [address] LOCATION: [facility] ADMIT DATE: 05/12/2017 ER/Outpatient Report DISCHARGE DATE: 05/13/2017 FAMILY PHYSICIAN: Galen Brannon MD ATTENDING PHYSICIAN: Zana Holman CHIEF COMPLAINT: Right-sided abdomen and back pain. HISTORY OF PRESENT ILLNESS: The patient states he has pain in his right abdomen. It feels like prior kidney stones. He denies any fevers or chills. This started suddenly 2 hours prior to arrival. He has had some nausea and vomiting since it started. He denies any other symptoms. PAST MEDICAL HISTORY: Documented on the record and reviewed by me. SOCIAL HISTORY: Documented on the record and reviewed by me. MEDICATIONS: Documented on the record and reviewed by me. ALLERGIES: DOCUMENTED ON THE RECORD AND REVIEWED BY ME. REVIEW OF SYSTEMS: All systems were reviewed and negative except as noted in the HPI. PHYSICAL EXAMINATION: VITAL SIGNS: Blood pressure is 176/99, pulse 65, respiratory rate 16, temperature 97.0, SpO2 is 97% on room air. Pain 0/10. GENERAL: An age-appropriate male, sitting upright on the exam table, in obvious discomfort, but no significant pain or distress. NEUROLOGIC: Awake and alert. GCS 15. No focal deficits. No asymmetry. HEENT: Normocephalic, atraumatic. Eyes are PERRL. Oropharynx is clear. NECK: Supple. Trachea is midline. CHEST: Heart is regular rate and rhythm with no murmurs. LUNGS: Clear to auscultation bilateral with no rhonchi, wheezes, or rales. ABDOMEN: Soft, nontender, and nondistended. No rebound or guarding. BACK: Normal to inspection and palpation. No CVA tenderness. EXTREMITIES: Warm and well perfused. SKIN: Clean, dry, and intact. PATIENT'S NAME: ADILIA LYONS [facility] AGE: 61 Y [address] ROOM: [place] [address] LOCATION: [facility] ADMIT DATE: 05/12/2017 ER/Outpatient Report DISCHARGE DATE: 05/13/2017 FAMILY PHYSICIAN: Galen Brannon MD ATTENDING PHYSICIAN: Zana Holman LABORATORY DATA AND X-RAYS: CT scan reveals a 2 to 3 mm distal ureteral stone. CMS without appreciable elevation of renal function. Baseline creatinine 1.3, currently 1.4, GFR is 54, no electrolyte abnormalities appreciated. Urinalysis micro with 25 leukocytes, 100 protein, 1 urobilinogen, 250 blood. Micro with 20-50 rbc's, 2- 5 epithelial cells, not consistent with infection. CBC: No elevation of white count, hemoglobin 16.8, platelets of 203. IMPRESSION: Right ureterolithiasis. EMERGENCY DEPARTMENT COURSE: The patient was seen and evaluated as above. He was given Zofran, Toradol, morphine, and [place]. He was feeling much better. The stone is consistent with his current presentation. He will be given [place] and Flomax to have at home. Recommend scheduled ibuprofen. Return if uncontrolled pain. Recommend strain urine per primary care physician. Follow up as needed. Return if warranted. MD KLEBER WARREN/jeimy /[id number] d: 05/13/17 0426 t: 05/14/17 1303, OUTPATIENT REPORT
[2017-05-12 22:40] LABS: BILIRUBIN URINE NEGATIVE (NEGATIVE); BLOOD URINE 250 /UL (NEGATIVE); COLOR URINE YELLOW (YELLOW); GLUCOSE URINE NEGATIVE (NEGATIVE); KETONE URINE NEGATIVE (NEGATIVE); LEUKOCYTES URINE 25 /UL (NEGATIVE); NITRITE URINE NEGATIVE (NEGATIVE); PROTEIN URINE 100 mg/dL (NEGATIVE); SPEC GRAVITY URINE 1.025 (1.003-1.035); TURBIDITY URINE CLEAR (CLEAR); UROBILINOGEN URINE 1 mg/dL (NORMAL)
[2017-05-12 22:46] LABS: BASOPHIL # 0.1 K/uL (0.0-0.2); BASOPHIL % 0.8 %; EOSINOPHIL # 0.1 K/uL (0.0-0.5); EOSINOPHIL % 0.8 %; HEMATOCRIT 49.7 % (37.0-53.0); HEMOGLOBIN 16.8 g/dL (11.0-16.0); IMMATURE GRANULOCYTE % 0.3 %; LYMPHOCYTE # 1.2 K/uL (0.8-4.0); LYMPHOCYTE % 13.9 %; MCH 30.3 pg (27.0-34.0); MCHC 33.8 gm/dL (32.0-36.5); MCV 89.7 fl (83.0-98.0); MONOCYTE # 0.7 K/uL (0.0-1.0); MPV 10.2 fl (9.4-12.4); NEUTROPHIL # (ANC) 6.7 K/uL (1.4-9.0); NEUTROPHIL % 76.2 %; NRBC % 0 /100WBC (0-0.00); RBC 5.54 M/uL (3.50-5.50); RDW-CV 13.2 % (11.9-14.6); WBC 8.8 K/uL (4.0-11.0)
[2017-05-12 22:48] LABS: BACTERIA URINE MANY (NEGATIVE); HYALINE CAST URINE 0-2 #/LPF (NEGATIVE); MUCUS URINE 3+ (NEGATIVE); RBC URINE 20-50 #/HPF (NEGATIVE)
[2017-05-12 22:49] LABS: PLATELET COUNT 203 K/uL (150-450)
[2017-05-12 23:00] LABS: ALBUMIN 3.7 gm/dL (3.5-5.0); CALCIUM 8.9 mg/dL (8.5-10.5); CREATININE 1.4 mg/dL (0.6-1.3); TOTAL BILIRUBIN 0.6 mg/dL (0.0-1.5); TOTAL PROTEIN 7.6 g/dL (6.0-8.4)
== END 2017-05-13 00:15 | disposition disaster alternative care site (69) ==
LOC: GMED 22:10
PROVIDERS: Emergency Medicine
DX: N13.2 Hydronephrosis with renal and ureteral calculous obstruction (principal); I10 Essential (primary) hypertension; E78.5 Hyperlipidemia, unspecified; Z87.442 Personal history of urinary calculi; Z79.82 Long term (current) use of aspirin; Z79.899 Other long term (current) drug therapy; Z98.61 Coronary angioplasty status
CPT/HCPCS: J1885; J2270; J2405; J7030

== ENCOUNTER → 2017-06-18 | Outpatient (CLI) | payer OTHER ==
[2017-06-18 17:50] LABS: ALBUMIN 3.6 gm/dL (3.5-5.0); ANION GAP 12.6 (10.0-19.0); CALCIUM 8.9 mg/dL (8.5-10.5); CREATININE 1.5 mg/dL (0.6-1.3); POTASSIUM 3.6 mMol/L (3.7-5.1); TOTAL BILIRUBIN 0.6 mg/dL (0.0-1.5); TOTAL PROTEIN 7.4 g/dL (6.0-8.4)
== END ==
LOC: LNHI 17:20
PROVIDERS: Internal Medicine Interventional Cardiology
DX: E78.5 Hyperlipidemia, unspecified (principal); N28.9 Disorder of kidney and ureter, unspecified; I25.10 Atherosclerotic heart disease of native coronary artery without angina pectoris